=== PATIENT | male | born 2000 | race Caucasian/White ===

== ENCOUNTER 2024-10-01 16:34 | Emergency (ER) | payer OTHER, SELFPAY ==
[2024-10-01 16:41] VITALS: BP 137/79
--- NOTE | 2024-10-01 19:34 | ED.GENMED ---
History of Present Illness
General
Chief Complaint: Skin Problem
Source: patient
Exam Limitations: none
Time Seen by Provider: 10/01/24 18:39
Nursing documentation reviewed up to this point in time: agreed with
History of Present Illness
History of Present Illness:
Patient is a 24-year-old male presenting to the emergency department for evaluation of laceration to right hand. 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
He states his hand slipped and he accidentally sliced his right hand. He denies pain in area of laceration although denies any numbness/tingling or limited range of motion of right hand/fingers.
Patient denies any other injury sustained. He was briefly seen at urgent care and then referred to the emergency department for laceration closure.
Patient states his last tetanus shot was updated earlier this year.
Review of Systems
Review of Systems
Allergies reviewed?: Yes
All Other Systems: ROS reviewed and negative except as documented in HPI and ROS
Phy Exam
Physical Exam
Physical Exam:
Vitals: Patient's vital signs are stable. Afebrile
General: Patient is well appearing, no acute distress
Skin: Approximately 1 cm very superficial laceration of right purlicue, bleeding minimally
Head: Normocephalic, atraumatic
Throat: Protecting airway
Neck: Normal ROM, no cervical spine tenderness
Cardiac: Regular rate
Pulm: No apparent respiratory distress
Abdomen: Nondistended
Extremities: Laceration to right purlicue as described above. Full ability to adduct/abduct right thumb as well as full range of motion at IP and MCP joint against resistance. Normal sensation in all digits of right hand. Cap refill less than 2
seconds.
Neuro: Grossly intact
Psychiatric: Normal affect.
Course
Vital Signs
Initial and Last Documented VS:
Initial Vital Signs
Temp Pulse Resp BP Pulse Ox
98.1 F 68 16 137/79 99
10/01/24 16:41 10/01/24 16:41 10/01/24 16:41 10/01/24 16:41 10/01/24 16:41
Last Documented Vital Signs
Temp Pulse Resp BP Pulse Ox
98.1 F 68 16 137/79 99
10/01/24 16:41 10/01/24 16:41 10/01/24 16:41 10/01/24 16:41 10/01/24 19:34
Procedures
Laceration Closure
Right Hand:
Status of Wound: clean
Size of Wound in cm: 1
Description of Wound Edges: sharp
Preparation: cleaned with saline and cleaned with Betadine
Anesthesia: 1% Lidocaine with epi
Revision/Debridement: routine- no revision
Wound exploration: explored to base- no FB
Type of Closure: interrupted sutures
Skin Closure Material: 4-0 nylon
Number of sutures: 2
MDM/Problems Addressed
Differential Diagnosis Includes:
Laceration, abrasion, tendon injury, etc.
MDM/Problems Addressed:
The patient presented to the Emergency Department with a laceration to the right purlicue sustained when he accidentally cut it with a small hook he was using to remove a cast during a grad school lab. No other injuries sustained. Vitals stable.
Physical exam as above. He has an approximately 1 cm superficial laceration to right purlicue with minimal bleeding. No evidence of tendon, nerve, or vascular injury. Sensation, motor function, and capillary refill distal to the injury site were
intact on examination. Shared decision making utilized with patient regarding primary closure with sutures today vs healing by secondary intention. Will close with sutures- verbal consent obtained by patient.
The wound was irrigated thoroughly with normal saline and examined under adequate lighting. No foreign body was identified. Local anesthesia was achieved with 1% lidocaine w/ epi and the laceration was repaired using 2 4-0 nylon simple interrupted
sutures. Hemostasis was achieved. A sterile dressing was applied. Tetanus status was reviewed and patient up to date on immunization.
The patient was given discharge instructions, including wound care, signs of infection, and activity restrictions. Return precautions were discussed. The patient was advised to follow up with their primary care provider or a clinic for suture
removal in 10 days. The patient verbalized understanding and was discharged in stable condition.
Chronic conditions affecting care:
N/A
Acute Exacerbation and/or Progression of Chronic Illness:
N/A
*Pulse Oximetry
SaO2: 99
Oxygen Mode of Delivery: Room air
Patient hypoxic: no
*EKG
Interpreted by ED Provider?: NA
*Physician/Allergy/Immunology Interpretation
Rate: Physician/Allergy/Immunology- N/A
*Critical Care Note
Total Time (30-74mins, 75-104mins- exclusive of procedures): Not Applicable
ED Attending Note
-
Portions of this chart may have been created with voice recognition software.� Occasional wrong word or��sound alike� substitutions may have occurred due to the inherent limitations of voice recognition software.
Discharge Plan
Departure
Patient Disposition: Home (Routine Discharge)
Date of Disposition: 10/01/24
Time of Disposition: 19:35
Patient with high blood pressure during this ER visit?: Yes
Condition: Good
Covid-19: Not Applicable
Discharge Problem:
Laceration of hand, right
Instructions: Wound Care (DC), Stitches - ED discharge instructions, BLOOD PRESSURE
Referrals:
Rubens Nguyen DO [Family Provider, Family Practice] - Follow up in 10 days
Activity Restrictions/Additional Instructions:
RETURN TO THE EMERGENCY DEPARTMENT WITH ANY NUMBNESS/TINGLING IN RIGHT HAND OR FINGERS, BLEEDING FROM WOUND THAT WILL NOT STOP AT HOME, ANY SIGNS OF INFECTION INCLUDING FEVER, CHILLS, REDNESS, WARMTH, PUS DRAINING, OR ANY OTHER CONCERNS
- As discussed�your wound was closed with 2 stitches in the emergency department. Please keep wound covered with topical antibiotic, clean, and dry until sutures are removed. They will be need to be removed in 10 to 14 days. This can be done at
primary care, urgent care, or emergency department.
- Please limit your range of motion in your right thumb/hand until sutures are removed to prevent poor wound healing
Monitor your symptoms closely and return to the emergency department with any acute worsening/new symptoms or any other concerns
Interventions
Interventions:
*Risk Screen - Suicide Last Done: 10/01/24 16:44
*General Assessment Last Done: 10/01/24 16:44
*Neglect/Abuse Screening Last Done: 10/01/24 16:44
*ED- Fall Risk Assessment Last Done: 10/01/24 16:44
*Nursing Disposition Last Done: 10/01/24 19:40
Discharge Date and Time
Discharge Date/Time: 10/01/24 19:50
Print Language: CYMRO
== END 2024-10-01 19:50 | disposition home or self-care (01) ==
LOC: EMR 16:34
PROVIDERS: EMERGENCY PHYSICIAN Emergency Medicine; FAMILY PHYSICIAN Family Medicine
DX: S61.411A Laceration without foreign body of right hand, initial encounter (principal); W45.8XXA Other foreign body or object entering through skin, initial encounter
CPT/HCPCS: 99282; 12001